=== PATIENT | female | born 1965 | race Caucasian/White ===

== ENCOUNTER 2020-11-28 15:14 | Outpatient (RCR) | payer MEDICARE, SELFPAY ==
[2020-11-28] MEDS: COVID-19 VACC, MRNA(PFIZER)/PF 30 MCG/0.3 ML SYRINGE IM (14:57)
[2020-12-19] MEDS: COVID-19 VACC, MRNA(PFIZER)/PF 30 MCG/0.3 ML SYRINGE IM (14:44)
--- NOTE | 2021-11-16 11:13 | BH.SGPN.GN ---
Behaviors/Verbalizations/Mental Status: []Client alert and oriented, casually dressed and grooming appropriate. Eye contact fair to good. Motor activity appropriate. Speech within normal limits, quiet. Affect constricted. mood dysthymic and anxious. Thoughts linear, logical, no signs of hallucinations or delusions. Client Response/Progress/Benefit: []Client mostly engaged in session AEB contributing some to discussion and taking notes throughout, appeared more passive than in prior sessions however. Attentive throughout discussion on what prevents moving on to the ?next chapter? in our life and the importance of problem-solving solutions to address identified barriers. Participated as group brainstormed the components of A,B,C,D,E problem solving method and various strategies for promoting follow-through in each stage. Client identified low motivation and feeling overwhelmed as barriers preventing her from moving to the next chapter in mental health recovery. Identified honestly communicating with supports and setting small realistic daily goals as realistic steps she can take in the problem-solving process. Appeared to benefit from learning about problem solving method and practice applying this to personal barriers identified. Progress variable as client continues to struggle with managing external stressors. Will continue IOP tx to improve mood stability, continue to promote healthy skill application, and prevent decompensation. Narrative Note: []
== END 2021-02-20 23:59 ==
LOC: IMMUN 15:14
PROVIDERS: Referring Provider Family Medicine; Visit Provider Family Medicine
DX: Z23 Encounter for immunization (principal)
CPT/HCPCS: 0001A; 0002A; 91300